=== PATIENT | female | born 1970 | race Caucasian/White ===

== ENCOUNTER 2023-08-07 18:59 | Emergency (ER) | payer BC, OTHER ==
[~2023-08-07] VITALS: Ht 172.7 cm; Wt 84.1 kg
[~2023-08-07 18:59] MED LIST: SERT25TA PO
[2023-08-07 19:05] VITALS: BP 95/71; PULSE 103; RESP 18; TEMP 97.5; O2SAT 96
== END 2023-08-07 19:40 ==
LOC: ER 18:59
DX: Z00.8 Encounter for other general examination (principal); I10 Essential (primary) hypertension; F32.A Depression, unspecified; Z72.89 Other problems related to lifestyle; Z90.49 Acquired absence of other specified parts of digestive tract
CPT/HCPCS: 99283